=== PATIENT | male | born 1995 | race Caucasian/White ===

== ENCOUNTER 2016-10-27 20:59 | Emergency (ER) | payer OTHER ==
[~2016-10-27] VITALS: Ht 185.4 cm; Wt 79.5 kg
[2016-10-27 21:03] VITALS: BP 153/70; TEMP 98
[2016-10-27 22:20] VITALS: PULSE 86
== END 2016-10-27 22:20 | disposition home or self-care (01) ==
LOC: COL.ER 20:59
DX: M94.0 Chondrocostal junction syndrome [Tietze] (principal)